=== PATIENT | female | born 1960 | race Asian ===

== ENCOUNTER 2021-06-22 10:03 | Outpatient (CLI) | payer BC | END 2021-06-22 10:04 | disposition home or self-care (01) | LOC: CSHMAMMO 10:03 | PROVIDERS: ATTEND Nurse Practitioner Family | DX: Z12.31 Encounter for screening mammogram for malignant neoplasm of breast (principal) | CPT/HCPCS: 77063; 77067 ==

== ENCOUNTER 2023-03-29 08:14 | Outpatient (CLI) | payer BC | END 2023-03-29 08:15 | disposition home or self-care (01) | LOC: CSHMAMMO 08:14 | PROVIDERS: ATTEND Nurse Practitioner Family | DX: Z12.31 Encounter for screening mammogram for malignant neoplasm of breast (principal) | CPT/HCPCS: 77063; 77067 ==

== ENCOUNTER 2024-05-13 07:59 | Outpatient (CLI) | payer BC | END 2024-05-13 08:00 | disposition home or self-care (01) | LOC: CSHMAMMO 07:59 | PROVIDERS: ATTEND Nurse Practitioner Family | DX: Z12.31 Encounter for screening mammogram for malignant neoplasm of breast (principal) | CPT/HCPCS: 77067 ==